=== PATIENT | female | born 1985 | race Caucasian/White ===

== ENCOUNTER 2017-04-01 14:17 | Day surgery (SDC) | payer BC ==
[~2017-04-01] VITALS: Ht 165.1 cm; Wt 62.9 kg
[2017-04-01 15:01] VITALS: BP 97/69
[2017-04-01] MEDS ORDERED: SERT25TA PO (15:07)
[2017-04-01] MEDS ORDERED: SUMA25TA4 PO (15:07)
[2017-04-01] MEDS ORDERED: ONDA4TAB7 PO (15:07)
[2017-04-01] MEDS ORDERED: ETON1VAG VG (15:07)
[2017-04-01] MEDS ORDERED: CETI10CA PO (15:07)
[2017-04-01] MEDS ORDERED: ROPI0.2537 PO (15:07)
[2017-04-01] MEDS ORDERED: FENTANYL PF 100 MCG/2ML ONE (15:29)
[2017-04-01] MEDS ORDERED: METOCLOPRAMIDE 5 MG/ML, 2ML IV PRN (15:30)
[2017-04-01] MEDS ORDERED: EPHEDRINE 50 MG/ML, 1ML IVPush PRN (15:30)
[2017-04-01] MEDS ORDERED: FENTANYL PF 100 MCG/2ML IV PRN (15:30)
[2017-04-01] MEDS ORDERED: MIDAZOLAM 1 MG/ML, 2ML ONE (15:30)
[2017-04-01] MEDS ORDERED: PROMETHAZINE 25 MG/ML, 1ML IV PRN (15:30)
[2017-04-01] MEDS ORDERED: HYDROmorphone 1 MG/ML, 1ML IV PRN (15:30)
[2017-04-01] MEDS ORDERED: ONDANSETRON 2MG/ML, 2ML IVPush PRN (15:30)
[2017-04-01] MEDS ORDERED: KETOROLAC 30 MG/1 ML IV PRN (15:30)
[2017-04-01] MEDS ORDERED: ALBUTEROL SULFATE 2.5 MG/3 ML NPPB PRN (15:30)
[2017-04-01] MEDS ORDERED: hydrALAzine 20 MG/ML, 1ML IV PRN (15:30)
[2017-04-01] MEDS ORDERED: ACETAMINOPHEN 325 MG TABLET PO PRN (15:30)
[2017-04-01] MEDS ORDERED: HYDROcodone/APAP 7.5-325MG/15ML UDC PO PRN (15:30)
[2017-04-01] MEDS ORDERED: METOPROLOL 1 MG/ML, 5ML IV PRN (15:30)
[2017-04-01] MEDS ORDERED: MEPERIDINE/PF 25MG/0.5ML IVPush PRN (15:30)
[2017-04-01] MEDS ORDERED: OXYcodone 5 MG/5 ML ORAL.SOL UDC PO PRN (15:30)
[2017-04-01] MEDS ORDERED: LABETALOL 5MG/ML, 20ML IV PRN (15:30)
[2017-04-01] MEDS ORDERED: DEXAMETHASONE 4 MG/ML, 1ML ONE (15:43)
[2017-04-01] MEDS ORDERED: SUCCINYLCHOLINE 20 MG/ML, 10ML ONE (15:43)
[2017-04-01] MEDS ORDERED: PROPOFOL 10 MG/ML, 20ML ONE (15:43)
[2017-04-01] MEDS ORDERED: ONDANSETRON 2MG/ML, 2ML ONE ×2 (15:43)
[2017-04-01 15:46] LABS: HCG UR OBC PASS
== END 2017-04-01 17:45 ==
LOC: OR 14:17
PROVIDERS: ATTEND Internal Medicine Gastroenterology
DX: C20 Malignant neoplasm of rectum (principal); F32.9 Major depressive disorder, single episode, unspecified; G43.909 Migraine, unspecified, not intractable, without status migrainosus; J45.909 Unspecified asthma, uncomplicated; Z98.890 Other specified postprocedural states; Z91.09 Other allergy status, other than to drugs and biological substances; Z72.89 Other problems related to lifestyle
CPT/HCPCS: 45342; 81025; J0330; J1100; J2250; J2405; J2704; J3010